=== PATIENT | female | born 1975 | race Caucasian/White ===

== ENCOUNTER 2016-05-11 20:21 | Emergency (ER) | payer OTHER, SELFPAY ==
[2016-05-11] MEDS ORDERED: Fentanyl 100 MCG/2 ML VIAL ONE (20:56)
[2016-05-11] MEDS ORDERED: Promethazine HCl 25 MG/ML VIAL ONE (20:56)
[2016-05-11 21:54] LABS: Anion Gap 13 mmol/L (10-20); BUN (Urea Nitrogen) 17 mg/dL (7.0-18.7); Calc. Creatinine Clearance 0 mL/min (70-130); Calcium 9.7 mg/dL (7.8-10.44); Carbon Dioxide 25 mmol/L (22-29); Chloride 109 mmol/L (98-107); Estimated GFR-MDRD Greater than 90; Glucose 88 mg/dL (70-105); Potassium 3.6 mmol/L (3.5-5.1); Sodium 143 mmol/L (136-145)
[2016-05-11 22:01] LABS: #Basophils 0.1 thou/uL (0.0-0.2); #Eosinphils 0.2 thou/uL (0.0-0.7); #Lymphocytes 1.5 thou/uL (1.20-3.40); #Monocytes 0.7 thou/uL (0.11-0.59); #Neutrophils 13.9 thou/uL (1.40-6.50); %Basophils 0.5 % (0.0-1.0); %Eosinophils 1.4 % (0.0-10.0); %Lymphocytes 9.3 % (21.0-51.0); %Monocytes 4.3 % (0.0-10.0); %Neutrophils 84.6 % (42.0-75.0); Hemoglobin 14.7 g/dL (12.0-16.0); Mean Corpuscular HGB CONC 32.3 g/dL (32.0-36.0); Mean Corpuscular Hemoglobin 30.2 pg (27.0-31.0); Mean Corpuscular Volume 93.6 fl (81.0-99.0); Mean Platelet Volume 6.7 fL (7.4-10.4); Platelet Count 298 thou/uL (130-400); RBC Distribution Width 11.7 % (11.5-14.5); Red Blood Cell (RBC) Count 4.88 mill/uL (4.20-5.40); White Blood Cell (WBC) Count 16.4 thou/uL (4.8-10.8)
--- NOTE | 2016-05-11 23:30 | RAD ---
RIGHT HUMERUS TWO VIEWS 05/11/16 A comminuted fracture of the distal humeral shaft is present with significant angulation medially of the distal fragments. There are essentially three fragments, the proximal, the distal which include s the condyles and an intervening fragment. IMPRESSION: Multipart fracture of the distal humerus with angulation. POS: HOME
== END 2016-05-12 01:59 | disposition short-term general hospital (02) ==
LOC: BURERS 20:21
DX: S42.401A Unspecified fracture of lower end of right humerus, initial encounter for closed fracture (principal); Z86.73 Personal history of transient ischemic attack (TIA), and cerebral infarction without residual deficits; Z79.899 Other long term (current) drug therapy; Y04.8XXA Assault by other bodily force, initial encounter
CPT/HCPCS: 29105; 80048; 85025; 96372; 96374; J1170; J2550; J3010

== ENCOUNTER 2017-11-21 16:35 | Emergency (ER) | payer SELFPAY ==
[2017-11-21] MEDS ORDERED: Cephalexin 500 MG CAP ONE (17:27)
[2017-11-21] MEDS ORDERED: Ciprofloxacin 500 MG TAB ONE (17:36)
== END 2017-11-21 17:45 | disposition home or self-care (01) ==
LOC: BURERS 16:35
DX: K02.9 Dental caries, unspecified (principal); F17.210 Nicotine dependence, cigarettes, uncomplicated; Z86.73 Personal history of transient ischemic attack (TIA), and cerebral infarction without residual deficits
CPT/HCPCS: 99282

== ENCOUNTER 2018-08-09 21:20 | Emergency (ER) | payer SELFPAY ==
[2018-08-09 22:03] LABS: Bilirubin Negative (Negative); Blood, Urine Negative (Negative); Clarity Clear (Clear); Glucose, Urine (Dipstick) Negative (Negative); Leukocyte Negative (Negative); Nitrite Negative (Negative); Protein, Urine (Dipstick) Negative (Neg-Trace); Urobilinogen 0.2 mg/dL (0.2-1.0); pH, Urine 6.5 (5.0-9.0)
--- NOTE | 2018-08-09 23:01 | RAD ---
CHEST TWO VIEWS: 08/09/18 Comparison is made with a 05/30/12 study. Small sutures are seen in each lung apex as before. Today's exam showed no pneumothorax or large pleural effusion. No lobar consolidation was present. There is s ome areas in the lateral part of the upper lobes that appear to be scarring. That on the left can be seen on the old study. There might be some slight blunting of the right costophrenic angle but I murray elpidio this is due to overlying breast tissue and scarring. IMPRESSION: No acute thoracic findings. POS: HOME
[2018-08-12 23:35] LABS: Chlam.trachomatis by PCR,Urine Not Detected (NotDetected)
== END 2018-08-09 22:19 | disposition home or self-care (01) ==
LOC: BURERS 21:20
DX: B00.1 Herpesviral vesicular dermatitis (principal); R07.89 Other chest pain; K02.9 Dental caries, unspecified; F17.210 Nicotine dependence, cigarettes, uncomplicated
CPT/HCPCS: 71046; 81003; 87491; 87591

== ENCOUNTER 2018-09-06 17:12 | Emergency (ER) | payer SELFPAY | END 2018-09-06 17:35 | disposition home or self-care (01) | LOC: BURERS 17:12 | DX: B02.9 Zoster without complications (principal); F41.9 Anxiety disorder, unspecified; F32.9 Major depressive disorder, single episode, unspecified; F17.210 Nicotine dependence, cigarettes, uncomplicated | CPT/HCPCS: 99282 ==

== ENCOUNTER 2019-01-11 11:01 | Emergency (ER) | payer SELFPAY | END 2019-01-11 11:30 | disposition home or self-care (01) | LOC: BURERS 11:01 | DX: K02.9 Dental caries, unspecified (principal); F41.9 Anxiety disorder, unspecified; F32.9 Major depressive disorder, single episode, unspecified; F17.210 Nicotine dependence, cigarettes, uncomplicated | CPT/HCPCS: 99281 ==

== ENCOUNTER 2019-07-30 19:59 | Emergency (ER) | payer SELFPAY ==
--- NOTE | 2019-07-30 23:19 | RAD ---
CHEST TWO VIEWS: 07/30/19 Comparison is made with the prior study of 08/09/18. The heart is normal in size. There is no vascular congestion, edema, or pleural effusion. There appe ars to have been prior surgery in the lung apices, possibly related to an old pneumothorax. No curren t pneumothorax was seen. A small amount of scarring is seen in the left lung laterally at the level o f the scapula. This was present before. IMPRESSION: No definite acute findings. Minor chronic changes as noted. POS: HOME
== END 2019-07-30 21:12 | disposition home or self-care (01) ==
LOC: BURERS 19:59
DX: S20.211A Contusion of right front wall of thorax, initial encounter (principal); F41.9 Anxiety disorder, unspecified; F32.9 Major depressive disorder, single episode, unspecified; F17.210 Nicotine dependence, cigarettes, uncomplicated; Y04.0XXA Assault by unarmed brawl or fight, initial encounter
CPT/HCPCS: 71046

== ENCOUNTER 2019-12-27 12:18 | Emergency (ER) | payer SELFPAY ==
[2019-12-27] MEDS ORDERED: hydrOXYzine 25 MG TAB ONE (13:26)
[2019-12-27] MEDS ORDERED: Cephalexin 250 MG CAP ONE (13:26)
== END 2019-12-27 14:39 | disposition home or self-care (01) ==
LOC: BURERS 12:18
DX: L01.00 Impetigo, unspecified (principal); R45.6 Violent behavior; E11.649 Type 2 diabetes mellitus with hypoglycemia without coma; F60.3 Borderline personality disorder; Z87.09 Personal history of other diseases of the respiratory system
CPT/HCPCS: 99283

== ENCOUNTER 2021-07-06 08:43 | Emergency (ER) | payer SELFPAY ==
[2021-07-06] MEDS ORDERED: Bupivacaine 0.5% 10 ML VIAL ONE (09:35)
[2021-07-06] MEDS ORDERED: Clindamycin 150 MG CAP ONE (10:07)
== END 2021-07-06 10:10 | disposition home or self-care (01) ==
LOC: BURERS 08:43
DX: K04.7 Periapical abscess without sinus (principal); L03.211 Cellulitis of face; E11.9 Type 2 diabetes mellitus without complications; F17.210 Nicotine dependence, cigarettes, uncomplicated
CPT/HCPCS: 64400; J3490